=== PATIENT | female | born 1950 | race Caucasian/White ===

== ENCOUNTER 2022-11-06 08:11 | Outpatient (CLI) | payer MEDICARE, MEDICAID | END 2022-11-06 08:12 | disposition home or self-care (01) | LOC: CSHCT 08:11 | PROVIDERS: ATTEND Student in an Organized Health Care Education/Training Program | DX: Z12.2 Encounter for screening for malignant neoplasm of respiratory organs (principal); F17.210 Nicotine dependence, cigarettes, uncomplicated; I71.23 Aneurysm of the descending thoracic aorta, without rupture | CPT/HCPCS: 71271 ==

== ENCOUNTER 2023-01-14 07:43 | Outpatient (CLI) | payer MEDICARE, MEDICAID | END 2023-01-14 07:44 | disposition home or self-care (01) | LOC: CSHCT 07:43 | PROVIDERS: ATTEND Student in an Organized Health Care Education/Training Program | DX: I71.9 Aortic aneurysm of unspecified site, without rupture (principal); I71.02 Dissection of abdominal aorta; I71.23 Aneurysm of the descending thoracic aorta, without rupture; K80.20 Calculus of gallbladder without cholecystitis without obstruction | CPT/HCPCS: 74174; 82565 ==

== ENCOUNTER 2023-01-23 09:40 | Outpatient (CLI) | payer MEDICARE, MEDICAID | END 2023-01-23 09:41 | disposition home or self-care (01) | LOC: CSHMAMMO 09:40 | PROVIDERS: ATTEND Student in an Organized Health Care Education/Training Program | DX: Z13.820 Encounter for screening for osteoporosis (principal); M85.89 Other specified disorders of bone density and structure, multiple sites | CPT/HCPCS: 77080 ==